=== PATIENT | male | born 1995 | race American Indian/Alaskan Native ===

== ENCOUNTER 2019-07-01 20:39 | Observation (INO) | payer OTHER ==
[2019-07-01] MEDS ORDERED: ONDANSETRON 4 MG/2 ML INJ IV ONE (21:09)
[2019-07-01] MEDS ORDERED: MORPHINE 4 MG/1 ML INJ IV ONE ×2 (21:09→23:07)
--- NOTE | 2019-07-01 21:10 | Event Note ---
ED Screening Note Date of service: 07/01/19 Time: 21:05 ED Screening Note: Pt complains of abdominal pain and N/V x today denies stool changes, hematemesis, coffee ground emesis, or abdominal surgeries pain is intermittent +chills and sweats This initial assessment/diagnostic orders/clinical plan/treatment(s) is/are subject to change based on patients health status, clinical progression and re- assessment by fellow clinical providers in the ED. Further treatment and workup at subsequent clinical providers discretion. Patient/guardian urged not to elope from the ED as their condition may be serious if not clinically assessed and managed. Initial orders include: CT labs
[2019-07-01 21:54] LABS: Hematocrit 44.4 % (35.5-45.6); Mean Corpuscular HGB Conc 34 % (32-34); Mean Corpuscular Volume 88 fl (84-94); Platelet Count 180 K/mm3 (140-440); Red Blood Count 5.05 M/mm3 (3.65-5.03); Red Cell Distribution Width 14.1 % (13.2-15.2)
[2019-07-01 22:06] LABS: Bilirubin,Urine NEG (Negative); Blood,Urine NEG (Negative); Color,Urine Yellow (Yellow); Mucus,Urine 1+ /HPF
[2019-07-01 22:18] LABS: BUN/Creatinine Ratio 6; Blood Urea Nitrogen 6 mg/dL (9-20); Calcium 9.2 mg/dL (8.4-10.2); Hemolysis Index 13
[2019-07-01 22:22] LABS: Alanine Aminotransferase 13 units/L (7-56); Albumin 4.5 g/dL (3.9-5)
[2019-07-01 22:24] LABS: Bilirubin,Direct < 0.2 mg/dL (0-0.2)
--- NOTE | 2019-07-01 22:51 | Emergency Department Report ---
ED General Adult HPI - General Chief complaint: Abdominal Pain Stated complaint: STOMACH VIRUS/FEVER/CRAMPS/VOMITING Time Seen by Provider: 07/01/19 21:04 Source: patient Mode of arrival: Ambulatory Limitations: No Limitations - History of Present Illness Initial comments: She complains of sharp abdominal pain that started this morning. Patient states the pain was located at his belly button but now has moved to the right lower quadrant. Patient endorses nausea but denies any vomiting. Patient denies chest pain, shortness breath, or headache. -: Sudden Location: abdomen Radiation: non-radiation Severity scale (0 -10): 2 Quality: sharp Consistency: constant Improves with: none Worsens with: none Associated Symptoms: denies other symptoms Treatments Prior to Arrival: none - Related Data Allergies Allergy/AdvReac Type Severity Reaction Status Date / Time No Known Allergies Allergy Verified 07/02/19 00:50 ED Review of Systems ROS: Stated complaint: STOMACH VIRUS/FEVER/CRAMPS/VOMITING Other details as noted in HPI Comment: All other systems reviewed and negative Constitutional: denies: chills, fever Eyes: denies: eye pain, eye discharge, vision change ENT: denies: ear pain, throat pain Respiratory: denies: cough, shortness of breath, wheezing Cardiovascular: denies: chest pain, palpitations Endocrine: no symptoms reported Gastrointestinal: abdominal pain. denies: nausea, diarrhea Genitourinary: denies: urgency, dysuria Musculoskeletal: denies: back pain, joint swelling, arthralgia Skin: denies: rash, lesions Neurological: denies: headache, weakness, paresthesias Psychiatric: denies: anxiety, depression Hematological/Lymphatic: denies: easy bleeding, easy bruising ED Past Medical Hx - Past Medical History Previous Medical History?: Yes Hx Asthma: Yes - Surgical History Past Surgical History?: No - Social History Smoking Status: Current Every Day Smoker Substance Use Type: Marijuana ED Physical Exam - General Limitations: No Limitations General appearance: alert, in no apparent distress - Head Head exam: Present: atraumatic, normocephalic - Eye Eye exam: Present: normal appearance, PERRL, EOMI - ENT ENT exam: Present: mucous membranes moist - Neck Neck exam: Present: normal inspection - Respiratory Respiratory exam: Present: normal lung sounds bilaterally. Absent: respiratory distress - Cardiovascular Cardiovascular Exam: Present: regular rate, normal rhythm. Absent: systolic murmur, diastolic murmur, rubs, gallop - GI/Abdominal GI/Abdominal exam: Present: soft, tenderness (ttp rlq), normal bowel sounds. Absent: distended - Rectal Rectal exam: Present: deferred - Extremities Exam Extremities exam: Present: normal inspection - Back Exam Back exam: Present: normal inspection - Neurological Exam Neurological exam: Present: alert, oriented X3, CN II-XII intact. Absent: motor sensory deficit - Psychiatric Psychiatric exam: Present: normal affect, normal mood - Skin Skin exam: Present: warm, dry, intact, normal color. Absent: rash ED Course Vital Signs 07/01/19 07/01/19 07/01/19 20:45 21:45 22:30 Temperature 99.4 F Pulse Rate 83 83 Respiratory 18 13 15 Rate Blood Pressure 123/84 Blood Pressure 132/86 [Right] O2 Sat by Pulse 97 100 100 Oximetry 07/01/19 07/01/19 07/02/19 22:49 23:52 00:37 Temperature Pulse Rate 74 91 H 78 Respiratory 12 16 18 Rate Blood Pressure Blood Pressure 131/78 124/70 128/72 [Right] O2 Sat by Pulse 99 99 100 Oximetry 07/02/19 01:33 Temperature Pulse Rate 78 Respiratory 11 L Rate Blood Pressure Blood Pressure 137/85 [Right] O2 Sat by Pulse 99 Oximetry ED Medical Decision Making - Lab Data Result diagrams: 07/01/19 21:36 07/01/19 21:36 Lab Results 07/01/19 07/01/19 07/01/19 Range/Units 21:36 21:36 21:36 WBC 10.4 (4.5-11.0) K/mm3 RBC 5.05 H (3.65-5.03) M/mm3 Hgb 15.0 (11.8-15.2) gm/dl Hct 44.4 (35.5-45.6) % MCV 88 (84-94) fl MCH 30 (28-32) pg MCHC 34 (32-34) % RDW 14.1 (13.2-15.2) % Plt Count 180 (140-440) K/mm3 Sodium 134 L (137-145) mmol/L Potassium 3.6 (3.6-5.0) mmol/L Chloride 101.3 (98-107) mmol/L Carbon Dioxide 20 L (22-30) mmol/L Anion Gap 16 mmol/L BUN 6 L (9-20) mg/dL Creatinine 1.0 (0.8-1.5) mg/dL Estimated GFR > 60 ml/min BUN/Creatinine Ratio 6 % Glucose 107 H (75-100) mg/dL Calcium 9.2 (8.4-10.2) mg/dL Total Bilirubin 0.50 (0.1-1.2) mg/dL Direct Bilirubin < 0.2 (0-0.2) mg/dL Indirect Bilirubin 0.3 mg/dL AST 24 (5-40) units/L ALT 13 (7-56) units/L Alkaline Phosphatase 55 (35-129) units/L Total Protein 7.4 (6.3-8.2) g/dL Albumin 4.5 (3.9-5) g/dL Albumin/Globulin Ratio 1.6 % Lipase 16 (13-60) units/L Urine Color (Yellow) Urine Turbidity (Clear) Urine pH (5.0-7.0) Ur Specific Limestone (1.003-1.030) Urine Protein (Negative) mg/dL Urine Glucose (UA) (Negative) mg/dL Urine Ketones (Negative) mg/dL Urine Blood (Negative) Urine Nitrite (Negative) Urine Bilirubin (Negative) Urine Urobilinogen (<2.0) mg/dL Ur Leukocyte Esterase (Negative) Urine WBC (Auto) (0.0-6.0) /HPF Urine RBC (Auto) (0.0-6.0) /HPF U Epithel Cells (Auto) (0-13.0) /HPF Urine Mucus /HPF 07/01/19 Range/Units 21:37 WBC (4.5-11.0) K/mm3 RBC (3.65-5.03) M/mm3 Hgb (11.8-15.2) gm/dl Hct (35.5-45.6) % MCV (84-94) fl MCH (28-32) pg MCHC (32-34) % RDW (13.2-15.2) % Plt Count (140-440) K/mm3 Sodium (137-145) mmol/L Potassium (3.6-5.0) mmol/L Chloride (98-107) mmol/L Carbon Dioxide (22-30) mmol/L Anion Gap mmol/L BUN (9-20) mg/dL Creatinine (0.8-1.5) mg/dL Estimated GFR ml/min BUN/Creatinine Ratio % Glucose (75-100) mg/dL Calcium (8.4-10.2) mg/dL Total Bilirubin (0.1-1.2) mg/dL Direct Bilirubin (0-0.2) mg/dL Indirect Bilirubin mg/dL AST (5-40) units/L ALT (7-56) units/L Alkaline Phosphatase (35-129) units/L Total Protein (6.3-8.2) g/dL Albumin (3.9-5) g/dL Albumin/Globulin Ratio % Lipase (13-60) units/L Urine Color Yellow (Yellow) Urine Turbidity Clear (Clear) Urine pH 6.0 (5.0-7.0) Ur Specific Limestone 1.021 (1.003-1.030) Urine Protein 30 mg/dl (Negative) mg/dL Urine Glucose (UA) Neg (Negative) mg/dL Urine Ketones Neg (Negative) mg/dL Urine Blood Neg (Negative) Urine Nitrite Neg (Negative) Urine Bilirubin Neg (Negative) Urine Urobilinogen 2.0 (<2.0) mg/dL Ur Leukocyte Esterase Neg (Negative) Urine WBC (Auto) 4.0 (0.0-6.0) /HPF Urine RBC (Auto) 7.0 (0.0-6.0) /HPF U Epithel Cells (Auto) 1.0 (0-13.0) /HPF Urine Mucus 1+ /HPF - Radiology Data Radiology results: report reviewed - Medical Decision Making The CT findings with the radiologist and there is concern also for inflammation of the cecum consistent with colitis as well. Spoke with Dr. Acosta and the plan is to have the patient admitted for further evaluation and possible surgery in the morning Critical care attestation.: If time is entered above; I have spent that time in minutes in the direct care of this critically ill patient, excluding procedure time. ED Disposition Clinical Impression: Colitis, Abdominal pain, Appendicitis Disposition: OP ADMIT IP TO THIS HOSP Is pt being admited?: Yes Does the pt Need Aspirin: No Condition: Fair Referrals: PRIMARY CARE, [Primary Care Provider] - 3-5 Days
[2019-07-02] MEDS ORDERED: HYDROmorphone 1 MG/1 ML INJ ONE (00:49)
[2019-07-02] MEDS ORDERED: HYDROmorphone 1 MG/1 ML INJ IV ONE ×2 (00:50→02:50)
--- NOTE | 2019-07-02 01:37 | Cat Scan Report ---
CT ABDOMEN AND PELVIS WITH CONTRAST INDICATION: RLQ pain, nausea, vomiting CONTRAST: 100 cc Omnipaque 300 IV COMPARISON: None available. All CT scans at this location are performed using CT dose reduction for ALARA by means of automated e xposure control. FINDINGS: Lung bases are clear. No pneumoperitoneum is seen. Gallbladder and bile ducts show no abnor malities. Pancreas appears within normal limits. Tiny probable cyst is seen of the liver. No other ma sses are seen. No lymphadenopathy is seen. Only a minimal amount of free fluid is seen in the pelvis which is nonspecific. No urinary obstructive changes are seen. Scattered areas of high density ingest ed material are noted in small bowel and colon. No evidence of bowel obstruction is seen. Rectosigmoi d colon is poorly distended making evaluation difficult. Radiographically I cannot exclude mild wall thickening but I do not see surrounding inflammation. There is a question of mild wall edema in the b ladder distended right colon and hepatic flexure. No pneumatosis intestinalis is seen. No portal veno us gas is noted. No significant abdominal wall herniation is seen. No focal inflammatory changes are noted. Appendix is not clearly visualized. IMPRESSION: Question of mild colitis involving the right colon as above without obvious complication. I cannot exclude colitis in the rectosigmoid colon but this appearance may just be due to lack of di stention. Clinical correlation is suggested. Signer Name: Peter Rapp MD Signed: 07/02/2019 1:32 AM Workstation Name: [id number]
[2019-07-02] MEDS ORDERED: SODIUM CHLORIDE 0.9% 1000 ML 1,000 ML IV ONE (02:21)
[2019-07-02] MEDS ORDERED: PIPERACIL/TAZOBACTA 4.5/NS 100 4.5 GM/100 ML VIAL IV ONE (02:21)
[2019-07-02] MEDS ORDERED: MORPHINE 2 MG/1 ML INJ IV PRN ×2 (03:19→11:51)
[2019-07-02] MEDS ORDERED: ONDANSETRON 4 MG/2 ML INJ IV PRN (03:20)
[2019-07-02] MEDS ORDERED: ACETAMINOPHEN 650 MG RECT SUPP PR PRN (03:21)
[2019-07-02] MEDS ORDERED: HYDROmorphone 1 MG/1 ML INJ IV PRN ×2 (03:58→10:00)
[2019-07-02] MEDS ORDERED: SODIUM CHLORIDE 0.9% 1000 ML 1,000 ML IV SCH (04:00)
[2019-07-02] MEDS: metroNIDAZOLE/NS 500 MG/100 ML 500 MG/100 ML BAG IV SCH ×2 (05:00→14:38)
--- NOTE | 2019-07-02 05:12 | History and Physical Report ---
CHIEF COMPLAINT: Abdominal pain. HISTORY OF PRESENT ILLNESS: The patient is a 23-year-old male who started having periumbilical pain that started yesterday morning. Pain later on migrated to the right lower quadrant and left lower quadrant abdominal area and pain was associated with nausea, vomiting, fever and chills. There was no history of diarrhea or constipation. Also, the patient denied history of shortness of breath, cough or chest pain. Pain was sharp in consistency and was relieved with pain medications. PAST SURGICAL HISTORY: Pertinent for asthma. FAMILY HISTORY: Noncontributory. SOCIAL HISTORY: The patient smokes cigarettes and also uses marijuana, but does not drink alcohol. The patient smokes cigarettes every day, uses marijuana and drinks alcohol. MEDICATIONS: The patient is not on any medication. ALLERGIES: There are no known drug allergies. REVIEW OF SYSTEMS: CONSTITUTIONAL: There is fever, there is chills, but no diaphoresis. HEENT: There is no headache or sore throat. CARDIOVASCULAR SYSTEM: There is no chest pain or orthopnea. RESPIRATORY SYSTEM: There is no shortness of breath or cough. GASTROINTESTINAL SYSTEM: Abdominal pain present. Nausea and vomiting present. No diarrhea, no constipation. NEUROLOGICAL SYSTEM: There is no numbness, no dizziness, no altered mental status. MUSCULOSKELETAL SYSTEM: There is no joint pain or swelling. DERMATOLOGICAL SYSTEM: There is no skin rash or itching. GENITOURINARY SYSTEM: There is no dysuria, hematuria, or flank pain. Rest of system review is normal. PHYSICAL EXAMINATION: GENERAL: At the time of exam, the patient was found to be alert, oriented x 3 and not in acute distress. VITAL SIGNS: At the initial time of presentation showed temperature of 99.4 degrees Fahrenheit, pulse of 83, respirations 18, blood pressure 123/84, O2 sat of 97% on room air. HEENT: Showed pupils to be equal, round, reactive to light and accommodating. Extraocular muscles are intact. NECK: Supple with no JVD or carotid bruit. CARDIOVASCULAR SYSTEM: Showed normal first and second heart sounds with no gallops or murmurs. RESPIRATORY SYSTEM: Showed good air entry on both sides of the lungs with no abnormal breath sounds. GASTROINTESTINAL SYSTEM: Show abdomen to be full, soft with tenderness in the periumbilical area and right lower quadrant area with rebound tenderness in the right lower quadrant area as well as tenderness in the left lower quadrant area. There was no organomegaly. Bowel sound was normal. NEUROLOGICAL SYSTEM: Showed no focal deficit. MUSCULOSKELETAL SYSTEM: Show no joint swelling or tenderness. DERMATOLOGICAL SYSTEM: Showed no skin rash. GENITOURINARY SYSTEM: Show no costovertebral angle tenderness. PERTINENT LABORATORY AND IMAGING STUDIES: The patient had CBC done with normal white count, normal hemoglobin and normal hematocrit. The patient's chemistry was unremarkable. Urinalysis came back unremarkable as well. IMAGING STUDIES: The patient has CT of the abdomen and pelvis with contrast done that shows mild colitis involving the right colon as stated in the report without complication. Also, the radiologist said that colitis in the rectosigmoid colon cannot be ruled out. DIAGNOSES: 1. Colitis. 2. Possibly appendicitis. PLAN OF CARE: 1. The patient will be admitted to medical/surgical [facility]. 2. The patient will remain n.p.o. until seen by the surgeon. 3. The patient will continue surgical consult with Dr. Acosta as requested by the Emergency Room. 4. The patient will be on IV normal saline running at 125 mL an hour. 5. The patient will be on IV Dilaudid 1 mg every 3 hours as needed for pain and IV Zofran 4 mg every 8 hours as needed for nausea and vomiting. 6. The patient will be on IV Zosyn 3.375 grams q. 8 hours and IV metronidazole 500 mg q. 12 hours. 7. The patient will be on Tylenol suppository 650 mg rectally every 4 hours as needed for fever and headache. 8. The patient will remain n.p.o. until reviewed by the surgeon. JOB# [id number] OCN/NTS
[2019-07-02] MEDS ORDERED: PIPERACILLIN/TAZOBACTAM 3.375 3.375 GM/50 ML BAG IV SCH (06:00)
--- NOTE | 2019-07-02 07:56 | Consultation ---
History of Present Illness Consult date: 07/02/19 Reason for consult: abdominal pain - History of present illness History of present illness: 23 yo male presents to ED with a three day history of abdominal pain that started at his umbilicus. It became more severe and localized to his RLQ yesterday. His work up included a CT scan that showed some colitis of the cecum and right colon, however the appendix could not be visualized. He says he has had nausea and vomiting since yesterday, with the feeling of fever and chills. Past History Past Medical History: other (asthma) Past Surgical History: No surgical history Social history: smoking Medications and Allergies Allergies Allergy/AdvReac Type Severity Reaction Status Date / Time No Known Allergies Allergy Verified 07/02/19 00:50 Active Meds: Active Medications Acetaminophen (Tylenol) 650 mg RI Q4H PRN PRN Reason: Fever >101 Hydromorphone HCl (Dilaudid) 1 mg IV Q3H PRN PRN Reason: Pain , Severe (7-10) Last Admin: 07/02/19 04:52 Dose: 1 mg Documented by: Sodium Chloride (Nacl 0.9% 1000 Ml) 1,000 mls @ 125 mls/hr IV DIRECT DOROTHEA Last Admin: 07/02/19 04:51 Dose: 125 mls/hr Documented by: Metronidazole (Flagyl 500 Mg/100 Ml) 500 mg in 100 mls @ 100 mls/hr IV Q8HR DOROTHEA; Protocol Last Admin: 07/02/19 05:00 Dose: 100 mls/hr Documented by: Piperacillin Sod/Tazobactam Sod (Zosyn/Ns 4.5gm/100ml) 4.5 gm in 100 mls @ 200 mls/hr IV Q8H DOROTHEA; Protocol Morphine Sulfate (Morphine) 2 mg IV Q3H PRN PRN Reason: Pain, Moderate (4-6) Ondansetron HCl (Zofran) 4 mg IV Q8H PRN PRN Reason: Nausea And Vomiting Review of Systems - Constitutional fever, chills - Cardiovascular no chest pain - Respiratory no shortness of breath - Gastrointestinal abdominal pain, nausea, vomiting - Genitourinary no dysuria Exam Vital Signs Temp Pulse Resp BP Pulse Ox 99.4 F 83 18 123/84 97 07/01/19 20:45 07/01/19 20:45 07/01/19 20:45 07/01/19 20:45 07/01/19 20:45 - General physical appearance Positive: well developed, no distress, moderate pain - Respiratory Positive: normal expansion, normal respiratory effort - Abdomen Abdomen: Present: soft, other (tender to palpation in the RLQ). Absent: guarding, rigid Results - Labs 07/01/19 21:36 07/01/19 21:36 Abnormal lab results 07/01/19 07/01/19 Range/Units 21:36 21:36 RBC 5.05 H (3.65-5.03) M/mm3 Sodium 134 L (137-145) mmol/L Carbon Dioxide 20 L (22-30) mmol/L BUN 6 L (9-20) mg/dL Glucose 107 H (75-100) mg/dL Diabetes panel 07/01/19 07/01/19 Range/Units 21:36 21:36 Sodium 134 L (137-145) mmol/L Potassium 3.6 (3.6-5.0) mmol/L Chloride 101.3 (98-107) mmol/L Carbon Dioxide 20 L (22-30) mmol/L BUN 6 L (9-20) mg/dL Creatinine 1.0 (0.8-1.5) mg/dL Glucose 107 H (75-100) mg/dL Calcium 9.2 (8.4-10.2) mg/dL AST 24 (5-40) units/L ALT 13 (7-56) units/L Alkaline Phosphatase 55 (35-129) units/L Total Protein 7.4 (6.3-8.2) g/dL Albumin 4.5 (3.9-5) g/dL Calcium panel 07/01/19 07/01/19 Range/Units 21:36 21:36 Calcium 9.2 (8.4-10.2) mg/dL Albumin 4.5 (3.9-5) g/dL Pituitary panel 07/01/19 Range/Units 21:36 Sodium 134 L (137-145) mmol/L Potassium 3.6 (3.6-5.0) mmol/L Chloride 101.3 (98-107) mmol/L Carbon Dioxide 20 L (22-30) mmol/L BUN 6 L (9-20) mg/dL Creatinine 1.0 (0.8-1.5) mg/dL Glucose 107 H (75-100) mg/dL Calcium 9.2 (8.4-10.2) mg/dL Adrenal panel 07/01/19 07/01/19 Range/Units 21:36 21:36 Sodium 134 L (137-145) mmol/L Potassium 3.6 (3.6-5.0) mmol/L Chloride 101.3 (98-107) mmol/L Carbon Dioxide 20 L (22-30) mmol/L BUN 6 L (9-20) mg/dL Creatinine 1.0 (0.8-1.5) mg/dL Glucose 107 H (75-100) mg/dL Calcium 9.2 (8.4-10.2) mg/dL Total Bilirubin 0.50 (0.1-1.2) mg/dL AST 24 (5-40) units/L ALT 13 (7-56) units/L Alkaline Phosphatase 55 (35-129) units/L Total Protein 7.4 (6.3-8.2) g/dL Albumin 4.5 (3.9-5) g/dL - Imaging CT scan - abdomen: report reviewed, image reviewed CT scan - chest: report reviewed, image reviewed Assessment and Plan 23 yo male with RLQ pain, colitis seen on imagine with no clear visualization of the appendix. Clinical presentation and location of inflammation are consistent with probable appendicitis. afebrile, stable Spoke to patient and mother at length, agreeable to lap appy. consent obtained.
[2019-07-02] MEDS ORDERED: ONDANSETRON 4 MG/2 ML INJ ONE (08:44)
[2019-07-02] MEDS ORDERED: fentaNYL 100 MCG/2 ML INJ ONE ×2 (08:44→10:47)
[2019-07-02] MEDS ORDERED: ROCURONIUM 50 MG/5 ML INJ IV ONE (08:44)
[2019-07-02] MEDS ORDERED: LIDOCAINE (1%) 10 MG/1 ML VIAL 20 ML MDV ONE (08:44)
[2019-07-02] MEDS ORDERED: NEOSTIGMINE 10MG/10 ML INJ MDV ONE (08:44)
[2019-07-02] MEDS ORDERED: GLYCOPYRROLATE 0.4 MG/2 ML INJ ONE (08:44)
[2019-07-02] MEDS ORDERED: dexAMETHasone 20 MG/5 ML VIAL ONE (08:44)
[2019-07-02] MEDS ORDERED: LIDOCAINE MPF (2%) 20 MG/1 ML VIAL 5 ML ONE (08:44)
[2019-07-02] MEDS ORDERED: KETAMINE/STERILE WATER 50 MG/ML SYRINGE ONE (08:45)
[2019-07-02] MEDS ORDERED: PROPOFOL 200 MG/20 ML VIAL IV ONE (08:45)
[2019-07-02] MEDS ORDERED: BUPIVACAINE-EPINEPHRINE/PF 0.5%-1:200,000 (30 ML) VIAL INFILTRATI ONE ×3 (08:45→10:11)
[2019-07-02] MEDS ORDERED: KETOROLAC 30 MG/1 ML INJ ONE (08:53)
[2019-07-02] MEDS ORDERED: MIDAZOLAM 2 MG/2 ML INJ IV NR (09:00)
--- NOTE | 2019-07-02 09:18 | Anesthesia Consultation ---
Anesthesia Consult and Med Hx Date of service: 07/02/19 - Airway Anesthetic Teeth Evaluation: Good ROM Head & Neck: Adequate Mental/Hyoid Distance: Adequate Mallampati Class: Class III Intubation Access Assessment: Possibly Difficult - Pulmonary Exam CTA: Yes - Cardiac Exam Cardiac Exam: RRR - Pre-Operative Health Status ASA Pre-Surgery Classification: ASA2 Proposed Anesthetic Plan: General - Pulmonary Hx Smoking: Yes Hx Asthma: Yes (childhood; no inhaler use in many years) Hx Respiratory Symptoms: No - Cardiovascular System Hx Hypertension: No Hx Heart Attack/AMI: No - Central Nervous System Hx Seizures: No CVA: No - Gastrointestinal Hx Gastroesophageal Reflux Disease: No - Endocrine Hx Renal Disease: No Hx Liver Disease: No Hx Insulin Dependent Diabetes: No Hx Non-Insulin Dependent Diabetes: No Hx Thyroid Disease: No - Hematic Hx Anemia: No - Other Systems Hx Substance Use: Yes (THC) Hx Obesity: No - Additional Comments Anesthesia Medical History Comments: No hx anesthetic complications. Last episode of vomiting yesterday prior to arrival to hospital.
--- NOTE | 2019-07-02 09:18 | Anesthesia Day of Surgery ---
Anesthesia Day of Surgery - Day of Surgery Patient Examined: Yes Patient H&P Reviewed: Yes Patient is NPO: Yes
[2019-07-02] MEDS ORDERED: LACTATED RINGERS 1,000 ML IV SCH (10:00)
[2019-07-02] MEDS ORDERED: PIPERACIL/TAZOBACTA 4.5/NS 100 4.5 GM/100 ML VIAL IV SCH (10:00)
[2019-07-02] MEDS ORDERED: SODIUM CHLORIDE 0.9% IRR 1,000 ML BOTTLE IR ONE (10:11)
[2019-07-02] MEDS ORDERED: LIDOCAINE (1%) 10 MG/1 ML VIAL 20 ML MDV INFILTRATI ONE ×2 (10:11)
[2019-07-02] MEDS ORDERED: ESMOLOL 100 MG/10 ML INJ IV ONE (10:21)
[2019-07-02] MEDS ORDERED: LACTATED RINGERS 1,000 ML ONE (10:37)
--- NOTE | 2019-07-02 11:18 | Operative Report ---
Operative Report Operative Report: DATE: 07/02/2019 SURGEON: SILVIA FOREMAN MD PRE-OP DX: RIGHT LOWER QUADRANT PAIN (PRESUMED APPENDICITIS) POST-OP DX: ACUTE, NO PERFORATED, NON-PURULENT APPENDICITIS ANESTHESIA: GETA SPECIIMEN: APPENDIX COMPLICATIONS: NONE IMMEDIATE FINDINGS: EARLY APPENDICITIS INDICATION: 23 YO MALE PRESENTED TO ED WITH 3 DAYS OF WORSENING LOCALIZED ABDOMINAL PAIN. WORK UP CT SHOWED INFLAMMATION OF THE RIGHT COLON AND CECUM BUT THE APPENDIX COULD NOT BE VISUALIZED. WITH HIS CLINICAL CORRELATION IT WAS DECIDED TO TAKE FOR LAPAROSCOPIC APPENDECTOMY. HE SIGNED CONSENT. DETAILS OF PROCEDURE: PT WAS BROUGHT INTO OR SUITE AND LAID IN SUPINE POSITION. BILATERAL LOWER EXTREMITY SCD WERE PLACE. GENERAL ANESTHESIA WAS INDUCED WITH SUCCESFUL ENDOTRACHEAL INTUBATION. A RIKCS CATHETER WAS INSERTED UNDER STERILE CONDITIONS. HIS ABDOMEN WAS PREPPED AND DRAPED IN STERILE FASHION WITH HIS LEFT ARM TUCKED AT HIS SIDE. AFTER THE TIME OUT, A VERESS NEEDLE WAS USED TO INSUFLATE THE ABDOMEN TO A PRESSURE OF 15MMHG. AFTER WHICH, USING OPTIVIEW TECHNIQUE, A 5MM TROCAR WAS INSERTED JUST SUPERIOR AND TO THE LEFT OF THE UMBILICUS. THERE WAS NOTED TO BE NO GROSS INJURY TO ANY INTRA-ABDOMINAL STRUCTURES. TWO WORKING TROCARS WERE PLACED UNDER DIRECT VISION. A 5MM IN THE SUPRA PUBIC AREA, AND A 12MM IN THE LEFT SIDE AT THE LEVEL OF THE UMBILICUS. THE TIP OF THE APPENDIX WAS IMMEDIATLEY VISIBLE, LATERAL TO THE CECUM. IT SHOWED MILD INFLAMMATION AND DILITATION AT THE TIP. IT WAS THEN LIFTED TOWARD THE ANTERIOR ABDOMINAL WALL. USING A LIGA-SURE DEVICE, THE MESO APPENDIX WAS TRANSECTED, RELEASING THE APPENDIXS TETHERING ATTACHMENTS. A WHITE LOAD ON AN ENDOSCOPIC STAPLER WAS USED TO TRANSECT THE APPENDIX AT ITS BASE. THE STAPLE LINE WAS INSPECTED AND THERE WERE NO SIGNS OF BLEEDING AND THE STAPLE LINE WAS INTACT. THERE WAS NO EVIDENCE OF PERFORATION, PURULENCE, OR OTHER AREAS OF INFLAMMED BOWEL IN THE AREA. THE APPENDIX WAS THEN PLACED IN AN ENDO-CATCH BAG AND RETRIEVED OUT OF THE 12MM PORT. THE 12MM PORT SITE WAS CLOSED WITH A 0 VICRYL USING A CAMILO GRIS DEVICE. THE ABDOMEN WAS DESFULATED AFTER IT WAS OBSERVED NO BLEEDING FROM OTHER TROCAR SITES. THE SKIN INCISONS WERE THEN CLOSED WITH 4-0 MONOCRYL FOLLOWED BY DERMABOND. PT WAS AWOKEN, EXTUBATED, RICKS REMOVED AND TAKEN TO RECOVERY IN STABLE CONDITION. ALL COUNTS WERE CORRECT.
[2019-07-02] MEDS ORDERED: oxyCODONE /ACETAMINOPHEN 5-325MG TAB PO PRN (11:51)
--- NOTE | 2019-07-02 13:38 | Post Anesthesia Evaluation ---
- Post Anesthesia Evaluation Patient Participated: Yes Airway Patent: Yes Stable Respiratory Function: Yes Nausea/Vomiting: No Temp > 96.8F: Yes Pain Manageable: Yes Adequeate Hydration: Yes Anesthesia Complications: No
--- NOTE | 2019-07-02 15:13 | Operative Report ---
Operative Report Operative Report: ADDENDUM TO PREVIOUS OPERATIVE REPORT 07/02/2019 NAME OF PROCEDURE WAS OMITTED PROCEDURE PERFORMED: LAPAROSCOPIC APPENDECTOMY
--- NOTE | 2019-07-02 16:18 | Discharge Summary ---
Providers - Providers Date of Admission: 07/02/19 02:51 Attending physician: CAPRI LEROY MD Primary care physician: ELINOR ODONNELL MD Hospitalization Condition: Fair Hospital course: 23-year-old man who presented with abdominal pain which localized to the right lower quadrant. He was found to have acute appendicitis, went on to have a lap appendectomy. Tolerated surgery very well. Discharge outpatient follow-up Preventative health counseling performed for 17 minutes Diagnosis Acute appendicitis Sepsis Disposition: - TO HOME OR SELFCARE Time spent for discharge: 35 minutes Core Measure Documentation - Palliative Care Palliative Care/ Comfort Measures: Not Applicable - Core Measures Any of the following diagnoses?: none Exam - Constitutional Vitals: Temp Pulse Resp BP Pulse Ox 98.9 F 81 18 137/78 97 07/02/19 12:26 07/02/19 12:26 07/02/19 12:26 07/02/19 12:26 07/02/19 12:26 General appearance: Present: no acute distress, well-nourished - EENT Eyes: Present: PERRL ENT: hearing intact, clear oral mucosa - Neck Neck: Present: supple, normal ROM - Respiratory Respiratory effort: normal Respiratory: bilateral: CTA - Cardiovascular Heart Sounds: Present: S1 & S2. Absent: rub, click - Extremities Extremities: pulses symmetrical, No edema Peripheral Pulses: within normal limits - Abdominal General gastrointestinal: Present: soft, non-tender, non-distended, normal bowel sounds Male genitourinary: Present: normal - Integumentary Integumentary: Present: clear, warm, dry - Musculoskeletal Musculoskeletal: gait normal, strength equal bilaterally - Psychiatric Psychiatric: appropriate mood/affect, intact judgment & insight - Neurologic Neurologic: CNII-XII intact, moves all extremities Plan Follow up with: PRIMARY CARE, [Primary Care Provider] - 3-5 Days Prescriptions: oxyCODONE /ACETAMINOPHEN [Percocet 5/325] 1 tab PO Q6HR PRN #14 tablet PRN Reason: Pain
[2019-07-02 16:44] VITALS: BP 129/83
--- NOTE | 2019-07-02 17:16 | Event Note ---
Date: 07/02/19 Pt seen after an uneventful lap appy. No complaints. Ok to discharge home this evening. Can follow up in the office with me in two weeks. call to make an appointment. [phone].
== END 2019-07-02 18:00 | disposition home or self-care (01) ==
LOC: ED 20:39 → 3B-SURG 07-02 02:51
PROVIDERS: ADMIT Internal Medicine; ATTEND Internal Medicine
DX: K52.9 Noninfective gastroenteritis and colitis, unspecified (principal); K36 Other appendicitis; J45.909 Unspecified asthma, uncomplicated; F17.210 Nicotine dependence, cigarettes, uncomplicated
CPT/HCPCS: 36415; 44970; 74177; 80048; 80076; 81001; 83690; 85027; 88304; 96361; 96365; 96366; 96367; 96375; 96376; 99284; 99406; G0378; J1100; J1170; J1885; J2250; J2270; J2405; J2543; J2704; J2710; J3010; J7030; J7120; Q9967